=== PATIENT | male | born 1950 | race Caucasian/White ===

== ENCOUNTER 2018-06-15 11:22 | Inpatient (IN) | payer OTHER ==
[~2018-06-15] VITALS: Ht 180.3 cm; Wt 119.5 kg
[2018-06-15 12:09] LABS: CLARITY,URINE CLEAR (CLEAR); COLOR,URINE YELLOW (YELLOW); LEUKOCYTE ESTERASE ,URINE NEGATIVE (NEGATIVE)
[2018-06-15 12:10] LABS: BILIRUBIN,URINE NEGATIVE (NEGATIVE); KETONES,URINE NEGATIVE (NEGATIVE); NITRITE,URINE NEGATIVE (NEGATIVE); PROTEIN,URINE DIPSTICK NEGATIVE (NEGATIVE); URINE UROBILINOGEN 0.2 mg/dL (0.2 - 1)
--- NOTE | 2018-06-15 12:16 | Diagnostic Imaging Report ---
EXAMINATION: CHEST 2 VIEWS INDICATION: Of breath \S\ORDER PLACED BY MD \S\[id number] \S\1145 \S\Y COMPARISON: None FINDINGS: PA and lateral views TUBES and LINES: None. LUNGS: Lungs are well inflated. Mild bilateral central pulmonary vascular congestion. There is no evidence of pneumonia or pulmonary edema. PLEURA: No pleural effusion or pneumothorax. HEART AND MEDIASTINUM: Prominent cardiac silhouette. Tortuous thoracic aorta with possible ectasia of the ascending thoracic segment. Mild atherosclerotic calcifications of the aortic arch. BONES AND SOFT TISSUES: No acute osseous lesion. Soft tissues are unremarkable. UPPER ABDOMEN: No free air under the diaphragm. IMPRESSION: Prominent cardiac silhouette with associated central pulmonary vascular congestion. Signed by: Dr. Delores Armenta M.D. on 06/15/2018 12:12 PM
[2018-06-15 12:29] LABS: EPITHELIAL CELLS,URINE RARE /LPF
[2018-06-15 12:35] LABS: BASOPHILS % 0.2 % (0.0-1.0); EOSINOPHILS # (AUTO) 0.1 (0.0-0.4); EOSINOPHILS % 1.8 % (0.0-6.0); LYMPHOCYTES # (AUTO) 1.7 (1.0-3.2); MEAN CORPUSCULAR HEMOGLOBIN 22.8 pg (28-32); MEAN CORPUSCULAR HGB CONC 29.1 g/dL (31-35); MEAN CORPUSCULAR VOLUME 78.4 fL (81-99); MONOCYTES # (AUTO) 0.8 (0.2-0.8); MONOCYTES % 11.3 % (4.4-11.3); NEUTROPHILS % 60.4 % (38.7-80.0); PLATELET COUNT 271 x10e3/uL (140-360); RED BLOOD COUNT 2.32 x10e6/uL (4.3-5.7); RED CELL DISTRIBUTION WIDTH 16.7 % (11.7-14.4)
[2018-06-15 12:39] LABS: HEMATOCRIT 18.2 % (38.2-49.6); HEMOGLOBIN 5.3 g/dL (14.0-18.0)
[2018-06-15 12:40] LABS: INR 1.2; PROTHROMBIN TIME 14.3 seconds (11.9-14.5)
[2018-06-15 12:41] LABS: PARTIAL THROMBOPLASTIN TIME 25.4 seconds (23.8-35.5)
[2018-06-15] MEDS ORDERED: SODIUM CHLORIDE 0.9% 250ML 250 ML IV ONE (12:45)
[2018-06-15 12:51] LABS: ALANINE AMINOTRANSFERASE 6 IU/L (0-55); ALBUMIN 3.6 g/dL (3.5-5.0); ALBUMIN/GLOBULIN RATIO 1.2 (0.8-2.0); ALKALINE PHOSPHATASE 68 IU/L (40-150); ANION GAP 11.7 mmol/L (8-16); BLOOD UREA NITROGEN 15 mg/dL (7-26); BUN/CREATININE RATIO 18 (6-25); CALCIUM 8.8 mg/dL (8.4-10.2); CARBON DIOXIDE 23 mmol/L (22-29); CHLORIDE 106 mmol/L (98-107); CREATINE KINASE 33 IU/L (30-200); CREATININE, SERUM 0.83 mg/dL (0.72-1.25); EST GLOMERULAR FILTRATION RATE > 60 ML/MIN (60-); GLUCOSE 104 mg/dL (74-118); POTASSIUM 3.7 mmol/L (3.5-5.1); SODIUM 137 mmol/L (136-145)
[2018-06-15] MEDS: SODIUM CHLORIDE 0.9% 1000ML 1,000 ML IV SCH ×2 (12:59→22:59)
[2018-06-15] MEDS ORDERED: ONDANSETRON HCL INJ 2 MG/ML VIAL IV PRN (13:00)
[2018-06-15 14:02] LABS: % IRON SATURATION 4 % (15-50); IRON 18 ug/dL (65-175); TOTAL IRON BINDING CAPACITY 456 ug/dL (261-478); TRANSFERRIN 326 mg/dL (174-364)
[2018-06-15] MEDS ORDERED: LIDOCAINE HCL 2% LOCAL INJ 5 ML SDV VIAL INJ ONE (15:42)
[2018-06-15] MEDS ORDERED: PROPOFOL IV EMULSION 10 MG/ML 20 ML VIAL ONE (15:42)
[2018-06-15] MEDS ORDERED: SODIUM CHLORIDE 0.9% 250ML 250 ML ONE (17:10)
[2018-06-15 17:20] VITALS: BP 151/64
[2018-06-15 17:45] VITALS: BP 151/64
[2018-06-15 17:52] VITALS: BP 151/64
[2018-06-15] MEDS ORDERED: ATORVASTATIN CA10 MG PO (18:15)
[2018-06-15] MEDS ORDERED: AMLODIPINE BESY10 MG PO (18:15)
[2018-06-15] MEDS ORDERED: TAMSULOSIN HCL0.4 MG PO (18:15)
[2018-06-15] MEDS ORDERED: ASPIR 8181 MG PO (18:15)
[2018-06-15 20:00] VITALS: BP 143/66
[2018-06-15 20:25] VITALS: BP 143/66
--- NOTE | 2018-06-15 22:00 | Consultation ---
DATE OF CONSULTATION: June 15, 2018 GI CONSULT NOTE REASON FOR CONSULT: Iron-deficiency anemia with Hemoccult-positive stool. HISTORY OF PRESENTING ILLNESS: A 68-year-old very pleasant , who gets most of his medical services in [facility]. Patient has been experiencing extreme lethargy, weakness, fatigue, and shortness of breath on minimal exertion. His also felt that he is grossly very pale. He wanted to show to his primary care doctor in [place], but somehow he did not get appointment. He decided to come to the emergency room. Here, blood work revealed hemoglobin of 5.3, hematocrit 18.2, MCV 78.4. Iron profile showed serum iron low 18, iron saturation also is also low and TIBC is 456, this is upper limit of the normal. On further questioning, patient stated that he has been seeing stool dark color for a few weeks. However, he tried to ignore it because he thought that when he was taking iron at that time also he noticed stool was dark color. He used to take iron 3 years ago because he was told that he is deficient in iron. He does not remember he was ever anemic like this in his life before. He has had a screening colonoscopy 2 years ago in [place], 2 polyps removed. Repeat colonoscopy was recommended in 3 years, which is due next year. Never had any upper endoscopy. He seldom takes any NSAIDs. Takes Aleve once in a while, probably one or twice in a month. No prior history of peptic ulcer disease. Never had any upper endoscopy. Denies any abdominal pain. Regular bowel movement. REVIEW OF SYSTEMS: Twelve-point system reviewed. Symptomatology is limited as per as per HPI. PAST MEDICAL HISTORY: Hypertension, hyperlipidemia. PAST SURGICAL HISTORY: Hernia repair. SOCIAL HISTORY: . Lives with his . No smoking alcohol or any illicit drug use. FAMILY HISTORY: Noncontributory negative for any GI or TOY MECHANIC malignancies. ALLERGIES: NO KNOWN DRUG ALLERGIES. HOME MEDICATIONS: Amlodipine, aspirin, atorvastatin, and tamsulosin. INPATIENT MEDICATION: Reviewed as per MAR. PHYSICAL EXAMINATION VITALS: Temperature 97.1, pulse 80, respiration 20, blood pressure 143/66, oxygen saturation 98% on room air. GENERAL: Not in any acute distress, gross pallor. HEENT: Oral mucosa is moist. Anicteric sclerae. CVS: S1, S2 regular with a 3/6 flow murmur at the apex. LUNGS: Bilaterally grossly clear. ABDOMEN: Obese, soft, nondistended nontender. No palpable mass or hernia. EXTREMITIES: 1+ bilateral pitting leg edema. LAB: Sodium 137, potassium 3.7, chloride 106, bicarb 23, BUN 15, creatinine 0.83, glucose 104. Serum iron 18, TIBC 456, iron saturation 4, and transferrin 326. Liver enzymes normal. WBC 6.65, hemoglobin 5.3, hematocrit 18.2, MCV 78.4, platelet count 271,000. Stool occult blood positive. Urinalysis negative. Chest x-ray, prominent cardiac silhouette with associated central pulmonary vascular congestion. IMPRESSION: Iron-deficiency anemia with a positive stool occult blood. PLAN 1. Transfuse packed red blood cell to keep hemoglobin at least above 7. 2. Upper endoscopy tomorrow. 3. Further recommendation based upon endoscopy findings. I thank, Dr. Crowell, for allowing me to participate in the care of this patient. MARVA MCKEON MD Job#: [id number] CQ
[2018-06-15] MEDS ORDERED: FUROSEMIDE INJ 10 MG/ML 4 ML VIAL IV ONE (23:45)
[2018-06-16] VITALS (7 sets, daily range): BP systolic 122–155; BP diastolic 56–68
[2018-06-16 04:56] LABS: BASOPHILS % 0.2 % (0.0-1.0); EOSINOPHILS # (AUTO) 0.2 (0.0-0.4); EOSINOPHILS % 2.3 % (0.0-6.0); HEMATOCRIT 21.1 % (38.2-49.6); LYMPHOCYTES # (AUTO) 2.1 (1.0-3.2); LYMPHOCYTES % 22.4 % (18.0-39.1); MEAN CORPUSCULAR HEMOGLOBIN 24.1 pg (28-32); MEAN CORPUSCULAR HGB CONC 30.8 g/dL (31-35); MEAN CORPUSCULAR VOLUME 78.1 fL (81-99); MONOCYTES # (AUTO) 0.9 (0.2-0.8); MONOCYTES % 9.4 % (4.4-11.3); NEUTROPHILS % 65.3 % (38.7-80.0); PLATELET COUNT 271 x10e3/uL (140-360); RED CELL DISTRIBUTION WIDTH 16.4 % (11.7-14.4)
[2018-06-16 05:16] LABS: ANION GAP 13.8 mmol/L (8-16); BLOOD UREA NITROGEN 14 mg/dL (7-26); BUN/CREATININE RATIO 18 (6-25); CALCIUM 8.9 mg/dL (8.4-10.2); CARBON DIOXIDE 24 mmol/L (22-29); CHLORIDE 106 mmol/L (98-107); CREATININE, SERUM 0.78 mg/dL (0.72-1.25); EST GLOMERULAR FILTRATION RATE > 60 ML/MIN (60-); GLUCOSE 102 mg/dL (74-118); POTASSIUM 3.8 mmol/L (3.5-5.1); SODIUM 140 mmol/L (136-145)
[2018-06-16 05:56] LABS: HEMOGLOBIN 6.5 g/dL (14.0-18.0)
[2018-06-16] MEDS ORDERED: SODIUM CHLORIDE 0.9% 250ML 250 ML IV ONE (06:45)
[2018-06-16] MEDS ORDERED: FUROSEMIDE INJ 10 MG/ML 2 ML VIAL IV PRN (06:45)
[2018-06-16] MEDS ORDERED: VITAMIN B-121000 MCG PO (07:59)
[2018-06-16] MEDS ORDERED: SODIUM CHLORIDE 0.9% 250ML 250 ML ONE (09:24)
[2018-06-16] MEDS ORDERED: PANTOPRAZOLE 40 MG 10ML VIAL IV SCH (09:45)
--- NOTE | 2018-06-16 10:28 | History and Physical ---
CHIEF COMPLAINT: Increasing shortness of breath and severe anemia and melena. Patient is a 68-year-old male smoker for many years. The patient had a colonoscopy approximately 2 years ago at the [place]. Had some polyps that was removed. Patient complained of melena and came in with hemoglobin and hematocrit of 5.3 and 18.3. Patient is status post 2 units of blood transfusion. His hemoglobin went up to 6.5. Patient pending for further evaluation with endoscopy. PAST MEDICAL HISTORY: Stable COPD, smoker, colon polyps, osteoarthritis, dyslipidemia, hypertension, enlarged prostate. PAST SURGICAL HISTORY: Abdominal hernia repair. SOCIAL HISTORY: The patient is a smoker and moderate drinker. He lives with his spouse. ALLERGIES: NO KNOWN ALLERGIES. HOME MEDICATIONS: Norvasc, aspirin, Lipitor, vitamin B12, and Flomax. PHYSICAL EXAMINATION VITALS: Temperature is 97, blood pressure 130/60, pulse rate 79, respirations 18. GENERAL: The patient is not in acute distress. He is awake. HEENT: Normocephalic, atraumatic and anicteric. NECK: Supple grossly. PULMONARY: Diminished breath sounds. CARDIOVASCULAR: S1 and S2. Regular rate and rhythm. ABDOMEN: Soft and unremarkable. EXTREMITIES: No cyanosis or edema. NEUROLOGIC: No focal deficit. LABORATORY: Sodium is 140, potassium 3.8, chloride 106, bicarb 24, BUN 14, creatinine 0.8, glucose 102. WBC 9.2, hemoglobin was 5.3 on admission, hematocrit 18.2, and platelets 271,000. IMAGING: Chest x-ray otherwise unremarkable. CT scan of the abdomen and pelvis still pending. IMPRESSION 1. Chronic anemia, but symptomatic. 2. Melena, possible upper gastrointestinal bleed. 3. Recent colonoscopy 2 years ago with polyps. PLAN: Endoscopy. Blood transfusion. Monitor the patient closely. Will follow up on the endoscopy workup. Will check the patient's CT scan of the abdomen and pelvis as well. Job#: [id number] SEBASTIAN
[2018-06-16] MEDS: ALBUTEROL/IPRATROPIUM 3 ML NEB NEB PRN (10:55)
[2018-06-16 12:37] LABS: HEMATOCRIT 24.4 % (38.2-49.6); HEMOGLOBIN 7.5 g/dL (14.0-18.0)
[2018-06-16] MEDS ORDERED: MIDAZOLAM HCL 2 MG/2 ML VIAL ONE (13:25)
--- NOTE | 2018-06-16 16:45 | Diagnostic Imaging Report ---
EXAM: CT Abdomen and Pelvis WITH contrast INDICATION: \S\gi bleed \[id number] \S\[id number] COMPARISON: Chest radiograph 06/15/2018 TECHNIQUE: Abdomen and pelvis were scanned utilizing a multidetector helical scanner from the lung base to the pubic symphysis after administration of IV contrast. Coronal and sagittal reformations were obtained. Routine protocol was performed. Scan was performed when during portal venous phase. IV CONTRAST: 100 mL of Isovue-370 ORAL CONTRAST: Water RADIATION DOSE: Total DLP: 879.3 mGy*cm Estimated effective dose: (DLP x 0.015 x size factor) mSv COMPLICATIONS: None FINDINGS: LINES and TUBES: None. LOWER THORAX: Small low-attenuation right pleural effusion. Subsegmental atelectasis in both lung bases. Biatrial enlargement. Coronary artery calcifications. The visualized distal esophagus is decompressed. HEPATOBILIARY: No focal hepatic lesions. No biliary ductal dilation. GALLBLADDER: No radio-opaque stones or sludge. No wall thickening. SPLEEN: No splenomegaly. Multiple calcified splenic granulomas. PANCREAS: No focal masses or ductal dilatation. ADRENALS: No adrenal nodules KIDNEYS/URETERS: Kidneys enhance symmetrically. No hydronephrosis. No cystic or solid mass lesions. No stones. GI TRACT: The stomach is decompressed. No surrounding fluid collections, fat stranding, or free air. Focal hyperdense wall thickening within the proximal sigmoid colon in the left lower quadrant on series 2, image 59 with associated scarring diverticulosis and mild surrounding fat stranding is suggestive of acute diverticulitis and the source of this patient GI bleed. Otherwise, no abnormal distention, wall thickening, or bowel obstruction. Appendix is normal. PELVIC ORGANS/BLADDER: Unremarkable. LYMPH NODES: No lymphadenopathy. VESSELS: Mild atherosclerotic calcifications of the abdominal aorta and pelvic arteries without aneurysm. Focal calcification in the interlobar left renal vein. PERITONEUM / RETROPERITONEUM: No free air or fluid. BONES: Unremarkable. SOFT TISSUES: Unremarkable. IMPRESSION: Focal diverticulitis of the proximal sigmoid colon in the left lower quadrant with hyperdense wall thickening likely the source of this patient's GI bleed. No perforation, free fluid, or abscess. Recommend follow-up CT abdomen and pelvis in 6-8 weeks to demonstrates resolution. Signed by: Dr. Delores Armenta M.D. on 06/16/2018 4:42 PM
[2018-06-16] MEDS ORDERED: SODIUM CHLORIDE 0.9% 50ML 50 ML ONE (19:36)
[2018-06-16] MEDS ORDERED: IOPAMIDOL 370 MG/ML 200 ML INFUS..BTL INJ ONE (19:36)
[2018-06-17] VITALS (7 sets, daily range): BP systolic 122–139; BP diastolic 57–63
[2018-06-17 05:17] LABS: BASOPHILS % 0.3 % (0.0-1.0); EOSINOPHILS # (AUTO) 0.2 (0.0-0.4); EOSINOPHILS % 2.3 % (0.0-6.0); HEMATOCRIT 24.2 % (38.2-49.6); HEMOGLOBIN 7.5 g/dL (14.0-18.0); LYMPHOCYTES # (AUTO) 1.9 (1.0-3.2); LYMPHOCYTES % 20.6 % (18.0-39.1); MEAN CORPUSCULAR HEMOGLOBIN 24.7 pg (28-32); MEAN CORPUSCULAR VOLUME 79.6 fL (81-99); MONOCYTES # (AUTO) 0.8 (0.2-0.8); MONOCYTES % 9.3 % (4.4-11.3); NEUTROPHILS # (AUTO) 6.1 (2.1-6.9); NEUTROPHILS % 67.4 % (38.7-80.0); PLATELET COUNT 271 x10e3/uL (140-360); RED BLOOD COUNT 3.04 x10e6/uL (4.3-5.7); RED CELL DISTRIBUTION WIDTH 17.2 % (11.7-14.4)
[2018-06-17 05:40] LABS: ANION GAP 12.7 mmol/L (8-16); BLOOD UREA NITROGEN 16 mg/dL (7-26); BUN/CREATININE RATIO 21 (6-25); CALCIUM 8.9 mg/dL (8.4-10.2); CARBON DIOXIDE 22 mmol/L (22-29); CHLORIDE 108 mmol/L (98-107); CREATININE, SERUM 0.78 mg/dL (0.72-1.25); EST GLOMERULAR FILTRATION RATE > 60 ML/MIN (60-); GLUCOSE 102 mg/dL (74-118); POTASSIUM 3.7 mmol/L (3.5-5.1); SODIUM 139 mmol/L (136-145)
[2018-06-17 06:01] LABS: PHOSPHORUS 3.8 MG/DL (2.3-4.7)
[2018-06-17 06:17] LABS: FOLATE 9.5 ng/mL (7.0-15.4)
[2018-06-17] MEDS ORDERED: PANTOPRAZOLE SOD 40 MG TABEC PO SCH (07:30)
[2018-06-17] MEDS: ALBUTEROL/IPRATROPIUM 3 ML NEB NEB PRN ×2 (09:25→19:00)
--- NOTE | 2018-06-17 09:26 | Cardiology Report ---
DATE OF STUDY: ECHOCARDIOGRAM ATTENDING PHYSICIAN: Dr. Lorenzo Crowell. M-MODE: Normal chamber sizes. Left ventricular hypertrophy. Normal contractility. Aortic sclerosis. Sclerosis of the mitral valve annulus. Normal tricuspid valve. No pericardial effusion. SECTOR SCAN: Mildly dilated left atrium. Left ventricular hypertrophy. Normal contractility. Ejection fraction is estimated at 55%. Aortic valve is sclerotic. Mitral annulus is sclerotic. Normal tricuspid valve. No pericardial effusion. CAROTID DOPPLER STUDY WITH COLOR: Aortic velocity is 2.5 m/s. Mitral valve area is calculated 3.3 cm2. There is trace tricuspid regurgitation and trace mitral regurgitation. Pulmonary artery systolic pressure estimated at 23 mmHg. CONCLUSIONS 1. Possible mild aortic stenosis with aortic velocity of 2.5 m/s. 2. Left ventricular hypertrophy with ejection fraction of approximately 55%. 3. Trace mitral regurgitation with sclerosis of the mitral valve annulus and mildly enlarged left atrium. 4. Trace tricuspid regurgitation without significant pulmonary hypertension. Pulmonary artery systolic pressure estimated at 23 mmHg. Job#: [id number] REJI cc:Dr. Lorenzo Crowell
[2018-06-17] MEDS ORDERED: ACETAMINOPHEN 325 MG TAB PO SCH (11:00)
[2018-06-17] MEDS: PANTOPRAZOLE 40 MG 10ML VIAL IV SCH (11:04)
[2018-06-17] MEDS: IRON SUCROSE 100 MG in SODIUM CHLORIDE 0.9% 100 ML 100 ML IV SCH (11:04)
[2018-06-18] VITALS: BP 144/65
[2018-06-18 05:43] LABS: BASOPHILS % 0.5 % (0.0-1.0); EOSINOPHILS # (AUTO) 0.3 (0.0-0.4); EOSINOPHILS % 2.9 % (0.0-6.0); HEMATOCRIT 24.2 % (38.2-49.6); HEMOGLOBIN 7.4 g/dL (14.0-18.0); LYMPHOCYTES # (AUTO) 1.7 (1.0-3.2); LYMPHOCYTES % 19.3 % (18.0-39.1); MEAN CORPUSCULAR HEMOGLOBIN 24.7 pg (28-32); MEAN CORPUSCULAR HGB CONC 30.6 g/dL (31-35); MEAN CORPUSCULAR VOLUME 80.9 fL (81-99); MONOCYTES # (AUTO) 0.8 (0.2-0.8); NEUTROPHILS % 68.1 % (38.7-80.0); PLATELET COUNT 274 x10e3/uL (140-360); RED BLOOD COUNT 2.99 x10e6/uL (4.3-5.7); RED CELL DISTRIBUTION WIDTH 17.5 % (11.7-14.4)
[2018-06-18 06:00] VITALS: BP 124/58
[2018-06-18 08:00] VITALS: BP 124/63
[2018-06-18] MEDS: PANTOPRAZOLE 40 MG 10ML VIAL IV SCH (09:00)
[2018-06-18] MEDS ORDERED: CYANOCOBALAMIN INJ 1,000 MCG/ML VIAL IM ONE (10:30)
[2018-06-18] MEDS: IRON SUCROSE 100 MG in SODIUM CHLORIDE 0.9% 100 ML 100 ML IV SCH (11:26)
[2018-06-18] MEDS: ACETAMINOPHEN 325 MG TAB PO SCH (11:26)
[2018-06-18 12:00] VITALS: BP 138/63
[2018-06-18 16:00] VITALS: BP 139/69
[2018-06-18 20:00] VITALS: BP 142/64
[2018-06-19] VITALS: BP 134/63
[2018-06-19 02:44] VITALS: BP 134/63
[2018-06-19 04:00] VITALS: BP 138/63
[2018-06-19 04:45] LABS: BASOPHILS % 0.5 % (0.0-1.0); EOSINOPHILS # (AUTO) 0.4 (0.0-0.4); EOSINOPHILS % 4.1 % (0.0-6.0); HEMOGLOBIN 7.7 g/dL (14.0-18.0); LYMPHOCYTES # (AUTO) 1.8 (1.0-3.2); LYMPHOCYTES % 20.9 % (18.0-39.1); MEAN CORPUSCULAR HEMOGLOBIN 25.3 pg (28-32); MEAN CORPUSCULAR HGB CONC 30.8 g/dL (31-35); MEAN CORPUSCULAR VOLUME 82.2 fL (81-99); MONOCYTES # (AUTO) 0.6 (0.2-0.8); MONOCYTES % 7.2 % (4.4-11.3); NEUTROPHILS # (AUTO) 5.7 (2.1-6.9); NEUTROPHILS % 67.1 % (38.7-80.0); PLATELET COUNT 290 x10e3/uL (140-360); RED BLOOD COUNT 3.04 x10e6/uL (4.3-5.7); RED CELL DISTRIBUTION WIDTH 18.5 % (11.7-14.4)
[2018-06-19] MEDS: CYANOCOBALAMIN INJ 1,000 MCG/ML VIAL IM SCH ×2 (06:06→09:35)
[2018-06-19 08:00] VITALS: BP 138/63
[2018-06-19] MEDS: PANTOPRAZOLE 40 MG 10ML VIAL IV SCH (09:35)
[2018-06-19] MEDS: IRON SUCROSE 100 MG in SODIUM CHLORIDE 0.9% 100 ML 100 ML IV SCH (09:35)
[2018-06-19] MEDS: ACETAMINOPHEN 325 MG TAB PO SCH (09:35)
--- NOTE | 2018-06-19 09:54 | Discharge Summary ---
PCP: Dr. Tommy Booker GAUGE MAKER: Dr. Estevan Robertson, GI. FINAL DIAGNOSES 1. Symptomatic anemia secondary to slow arteriovenous malformation angiectasias bleed from the upper esophagogastroduodenoscopy diagnosed as Schatzki's ring, hiatal hernia, gastritis, and duodenal angiectasias. 2. Status post iron infusion. 3. Status post multiple blood transfusions. SUMMARY: Patient is a 68-year-old male basically came in with very low hemoglobin and hematocrit. The patient with symptomatic anemia. His hemoglobin and hematocrit on admission was 5.3 and 18.2. Subsequently, he received 2 units of blood transfusion. His hemoglobin and hematocrit now are 7.7 and 25 and is going up slowly. He does have iron deficiency anemia as indicated by the EGD done by Dr. Robertson. Patient is stable. He is doing much better. He received multiple doses of iron infusion. He is stable. He will go home with iron tablets, and continue to monitor outpatient. His echocardiogram showed ejection fraction of 55% to 60%. Chest x-ray otherwise unremarkable. The patient is stable and discharged home today. Follow up with Dr. Robertson for repeated EGD in the near future. The patient is stable. Job#: [id number] SEBASTIAN
[2018-06-19] MEDS ORDERED: HEMATINIC-VITA1 EACH (10:51)
[2018-06-19] MEDS ORDERED: COLACE100 MG PO (10:52)
[2018-06-19 10:54] VITALS: BP 144/66
== END 2018-06-19 10:57 | disposition home or self-care (01) | DRG 378 ==
LOC: ER 11:22 → ERHOLD 13:20 → MED/SURG2 17:06
PROVIDERS: ADMIT Internal Medicine; ATTEND Internal Medicine
PROC: 30233N1 Transfusion of Nonautologous Red Blood Cells into Peripheral Vein, Percutaneous Approach (ICD-10-PCS; 2018-06-15)
PROC: 0W3P8ZZ Control Bleeding in Gastrointestinal Tract, Via Natural or Artificial Opening Endoscopic (ICD-10-PCS; 2018-06-16)
PROC: 0DB68ZX Excision of Stomach, Via Natural or Artificial Opening Endoscopic, Diagnostic (ICD-10-PCS; principal; 2018-06-16 07:00)
DX: K55.21 Angiodysplasia of colon with hemorrhage (principal); D62 Acute posthemorrhagic anemia; K29.70 Gastritis, unspecified, without bleeding; K44.9 Diaphragmatic hernia without obstruction or gangrene; F17.210 Nicotine dependence, cigarettes, uncomplicated; Z86.010 Personal history of colon polyps; E78.5 Hyperlipidemia, unspecified; I10 Essential (primary) hypertension; N40.0 Benign prostatic hyperplasia without lower urinary tract symptoms; J44.9 Chronic obstructive pulmonary disease, unspecified
CPT/HCPCS: 36415; 36430; 43239; 71046; 74177; 80048; 80053; 81001; 82270; 82550; 82553; 82607; 82746; 83540; 83735; 83880; 84100; 84466; 84484; 85014; 85018; 85025; 85610; 85730; 86850; 86900; 86920; 88305; 88312; 93005; 93306; 94640; 99284; J1756; J1940; J2001; J2250; J2405; J3420; J7030; J7050; P9016; Q9967

== ENCOUNTER 2021-03-13 11:17 | Inpatient (IN) | payer MEDICARE, OTHER ==
[~2021-03-13] VITALS: Ht 180.3 cm; Wt 106.6 kg
[~2021-03-13 11:17] MED LIST: AMLODIPINE BESY10 MG PO; ASPIR 8181 MG PO; ATORVASTATIN CA10 MG PO; COLACE100 MG PO; HEMATINIC-VITA1 EACH; TAMSULOSIN HCL0.4 MG PO; VITAMIN B-121000 MCG PO
[2021-03-13 12:09] LABS: BASOPHILS % 0.6 % (0.0-1.0); EOSINOPHILS # (AUTO) 0.2 (0.0-0.4); EOSINOPHILS % 2.4 % (0.0-6.0); HEMATOCRIT 24.8 % (38.2-49.6); HEMOGLOBIN 7.7 g/dL (14.0-18.0); LYMPHOCYTES # (AUTO) 1.9 (1.0-3.2); LYMPHOCYTES % 27.1 % (18.0-39.1); MEAN CORPUSCULAR HEMOGLOBIN 26.5 pg (28-32); MEAN CORPUSCULAR VOLUME 85.2 fL (81-99); MONOCYTES # (AUTO) 0.7 (0.2-0.8); MONOCYTES % 10.3 % (4.4-11.3); NEUTROPHILS # (AUTO) 4.2 (2.1-6.9); NEUTROPHILS % 59.2 % (38.7-80.0); PLATELET COUNT 258 x10e3/uL (140-360); RED BLOOD COUNT 2.91 x10e6/uL (4.3-5.7); RED CELL DISTRIBUTION WIDTH 15.8 % (11.7-14.4)
[2021-03-13] MEDS ORDERED: ALBUTEROL/IPRATROPIUM 3 ML NEB NEB ONE (12:15)
[2021-03-13 12:27] LABS: ALANINE AMINOTRANSFERASE 7 IU/L (0-55); ALBUMIN 3.9 g/dL (3.5-5.0); ALBUMIN/GLOBULIN RATIO 1.3 (0.8-2.0); ALKALINE PHOSPHATASE 74 IU/L (40-150); ANION GAP 12.5 mmol/L (8-16); BLOOD UREA NITROGEN 18 mg/dL (7-26); BUN/CREATININE RATIO 20 (6-25); CALCIUM 8.4 mg/dL (8.4-10.2); CARBON DIOXIDE 23 mmol/L (22-29); CHLORIDE 109 mmol/L (98-107); CREATINE KINASE 75 IU/L (30-200); CREATININE, SERUM 0.92 mg/dL (0.72-1.25); EST GLOMERULAR FILTRATION RATE > 60 ML/MIN (60-); GLUCOSE 105 mg/dL (74-118); POTASSIUM 3.5 mmol/L (3.5-5.1); SODIUM 141 mmol/L (136-145)
[2021-03-13] MEDS ORDERED: OCTREOTIDE ACETATE 0.05 MG/ML AMP IV STA (13:35)
[2021-03-13] MEDS ORDERED: SODIUM CHLORIDE 0.9% 250ML 250 ML IV ONE (14:00)
[2021-03-13] MEDS ORDERED: FUROSEMIDE INJ 10 MG/ML 2 ML VIAL IV PRN (14:00)
[2021-03-13] MEDS ORDERED: PANTOPRAZOLE 40 MG 10ML VIAL IV ONE (14:00)
[2021-03-13] MEDS ORDERED: ALBUTEROL/IPRATROPIUM 3 ML NEB NEB PRN (14:15)
[2021-03-13] MEDS: SODIUM CHLORIDE 0.9% 1000ML 1,000 ML IV SCH (14:39)
[2021-03-13] MEDS: OCTREOTIDE ACETATE 500 MCG in SODIUM CHLORIDE 0.9% 250ML 250 ML IV SCH (15:00)
[2021-03-13 15:46] LABS: INR 1.03; PROTHROMBIN TIME 14.1 seconds (11.9-14.5)
[2021-03-13 15:47] LABS: PARTIAL THROMBOPLASTIN TIME 25.8 seconds (23.8-35.5)
[2021-03-13 15:50] VITALS: BP 154/61
[2021-03-13 15:58] VITALS: BP 154/61
[2021-03-13 20:00] VITALS: BP 125/63
[2021-03-13] MEDS: PANTOPRAZOLE 40 MG 10ML VIAL IV SCH (20:59)
[2021-03-13 21:00] VITALS: BP 125/63
[2021-03-13] MEDS ORDERED: SODIUM CHLORIDE 0.9% 50ML 50 ML ONE (23:44)
[2021-03-14] VITALS (8 sets, daily range): BP systolic 121–139; BP diastolic 52–78
[2021-03-14] MEDS: OCTREOTIDE ACETATE 500 MCG in SODIUM CHLORIDE 0.9% 250ML 250 ML IV SCH ×2 (00:30→10:30)
[2021-03-14] MEDS ORDERED: ACETAMINOPHEN 325 MG TAB PO PRN (01:00)
[2021-03-14] MEDS ORDERED: POTASSIUM CHLORIDE 20 MEQ TAB CR PO PRN (01:00)
[2021-03-14] MEDS ORDERED: BENZONATATE 100 MG CAP PO PRN (01:00)
[2021-03-14] MEDS ORDERED: LIDOCAINE 4% PATCH TP PRN (01:00)
[2021-03-14] MEDS ORDERED: ONDANSETRON HCL INJ 2MG/ML 2ML 2 MG/ML VIAL IV PRN (01:00)
[2021-03-14] MEDS ORDERED: HYDRALAZINE HCL 20 MG/ML VIAL IV PRN (01:00)
[2021-03-14] MEDS ORDERED: DEXTROSE 50% SYRINGE 50 ML IV PRN (01:00)
[2021-03-14] MEDS ORDERED: MELATONIN 5 MG TABLET PO PRN (01:00)
[2021-03-14] MEDS ORDERED: DIPHENHYDRAMINE HCL 25 MG CAP PO PRN (01:00)
[2021-03-14] MEDS ORDERED: DOCUSATE SODIUM 100 MG CAP PO PRN (01:00)
[2021-03-14 01:04] LABS: FERRITIN 8.17 ng/mL (21.81-274.66)
[2021-03-14] MEDS ORDERED: CYANOCOBALAMIN INJ 1,000 MCG/ML VIAL IM STA (01:30)
[2021-03-14 06:08] LABS: BASOPHILS % 0.6 % (0.0-1.0); EOSINOPHILS # (AUTO) 0.2 (0.0-0.4); HEMATOCRIT 30.2 % (38.2-49.6); HEMOGLOBIN 9.5 g/dL (14.0-18.0); LYMPHOCYTES # (AUTO) 1.5 (1.0-3.2); LYMPHOCYTES % 22.1 % (18.0-39.1); MEAN CORPUSCULAR HGB CONC 31.5 g/dL (31-35); MEAN CORPUSCULAR VOLUME 85.8 fL (81-99); MONOCYTES # (AUTO) 0.6 (0.2-0.8); MONOCYTES % 9.3 % (4.4-11.3); NEUTROPHILS # (AUTO) 4.5 (2.1-6.9); NEUTROPHILS % 64.7 % (38.7-80.0); PLATELET COUNT 243 x10e3/uL (140-360); RED BLOOD COUNT 3.52 x10e6/uL (4.3-5.7); RED CELL DISTRIBUTION WIDTH 15.6 % (11.7-14.4)
[2021-03-14] MEDS: SODIUM CHLORIDE 0.9% 1000ML 1,000 ML IV SCH (06:21)
[2021-03-14 06:28] LABS: ALANINE AMINOTRANSFERASE 8 IU/L (0-55); ALBUMIN 3.7 g/dL (3.5-5.0); ALBUMIN/GLOBULIN RATIO 1.2 (0.8-2.0); ALKALINE PHOSPHATASE 75 IU/L (40-150); ANION GAP 12.7 mmol/L (8-16); BLOOD UREA NITROGEN 15 mg/dL (7-26); BUN/CREATININE RATIO 17 (6-25); CALCIUM 8.2 mg/dL (8.4-10.2); CARBON DIOXIDE 25 mmol/L (22-29); CHLORIDE 105 mmol/L (98-107); EST GLOMERULAR FILTRATION RATE > 60 ML/MIN (60-); GLUCOSE 123 mg/dL (74-118); POTASSIUM 3.7 mmol/L (3.5-5.1); SODIUM 139 mmol/L (136-145)
[2021-03-14 06:47] LABS: CREATINE KINASE MB 1.9 ng/mL (0-5.0)
[2021-03-14] MEDS: DOCUSATE SODIUM 100 MG CAP PO SCH ×2 (09:00→16:54)
[2021-03-14] MEDS: IRON SUCROSE 100 MG in SODIUM CHLORIDE 0.9% 100 ML 100 ML IV SCH (09:00)
[2021-03-14] MEDS: PANTOPRAZOLE 40 MG 10ML VIAL IV SCH ×2 (09:00→21:05)
[2021-03-14] MEDS: AMLODIPINE BESYLATE 10 MG TAB PO SCH ×2 (09:00→16:30)
[2021-03-14] MEDS: CYANOCOBALAMIN INJ 1,000 MCG/ML VIAL IM SCH (09:00)
[2021-03-14] MEDS ORDERED: SODIUM CHLORIDE 0.9% 250ML 250 ML ONE (10:56)
[2021-03-14 12:03] LABS: BASOPHILS # (AUTO) 0.1 (0.0-0.1); BASOPHILS % 0.6 % (0.0-1.0); EOSINOPHILS # (AUTO) 0.2 (0.0-0.4); EOSINOPHILS % 2.8 % (0.0-6.0); HEMATOCRIT 30.3 % (38.2-49.6); HEMOGLOBIN 9.4 g/dL (14.0-18.0); LYMPHOCYTES # (AUTO) 1.3 (1.0-3.2); LYMPHOCYTES % 16.7 % (18.0-39.1); MEAN CORPUSCULAR HEMOGLOBIN 26.9 pg (28-32); MEAN CORPUSCULAR VOLUME 86.6 fL (81-99); MONOCYTES # (AUTO) 0.7 (0.2-0.8); MONOCYTES % 8.8 % (4.4-11.3); NEUTROPHILS # (AUTO) 5.6 (2.1-6.9); NEUTROPHILS % 70.7 % (38.7-80.0); PLATELET COUNT 241 x10e3/uL (140-360); RED CELL DISTRIBUTION WIDTH 15.7 % (11.7-14.4)
[2021-03-14 12:22] LABS: CREATINE KINASE MB 1.6 ng/mL (0-5.0)
[2021-03-14] MEDS ORDERED: FUROSEMIDE INJ 10 MG/ML 4 ML VIAL IV NR (12:45)
[2021-03-14] MEDS ORDERED: IOPAMIDOL 370 MG/ML 200 ML INFUS..BTL INJ ONE (13:35)
[2021-03-14] MEDS ORDERED: SODIUM CHLORIDE 0.9% 50ML 50 ML ONE (13:35)
[2021-03-14] MEDS: METHYLPREDNISOLONE SOD SUCC 40 MG/ML VIAL 1ML IV SCH ×2 (16:00→21:06)
[2021-03-14 19:53] LABS: BASOPHILS % 0.4 % (0.0-1.0); EOSINOPHILS % 0.4 % (0.0-6.0); HEMOGLOBIN 9.7 g/dL (14.0-18.0); LYMPHOCYTES # (AUTO) 0.5 (1.0-3.2); LYMPHOCYTES % 5.7 % (18.0-39.1); MEAN CORPUSCULAR HEMOGLOBIN 26.8 pg (28-32); MEAN CORPUSCULAR HGB CONC 31.3 g/dL (31-35); MEAN CORPUSCULAR VOLUME 85.6 fL (81-99); MONOCYTES # (AUTO) 0.2 (0.2-0.8); MONOCYTES % 2.2 % (4.4-11.3); NEUTROPHILS # (AUTO) 7.6 (2.1-6.9); NEUTROPHILS % 90.8 % (38.7-80.0); PLATELET COUNT 250 x10e3/uL (140-360); RED BLOOD COUNT 3.62 x10e6/uL (4.3-5.7); RED CELL DISTRIBUTION WIDTH 15.6 % (11.7-14.4)
[2021-03-14] MEDS: ATORVASTATIN 40 MG TAB PO SCH (21:09)
[2021-03-14] MEDS: ZOLPIDEM TARTRATE 5 MG TAB PO PRN (21:09)
[2021-03-15] VITALS (8 sets, daily range): BP systolic 118–133; BP diastolic 53–87
[2021-03-15 05:55] LABS: BASOPHILS % 0.1 % (0.0-1.0); HEMATOCRIT 29.9 % (38.2-49.6); HEMOGLOBIN 9.5 g/dL (14.0-18.0); LYMPHOCYTES # (AUTO) 0.8 (1.0-3.2); LYMPHOCYTES % 10.3 % (18.0-39.1); MEAN CORPUSCULAR HEMOGLOBIN 27.1 pg (28-32); MEAN CORPUSCULAR HGB CONC 31.8 g/dL (31-35); MEAN CORPUSCULAR VOLUME 85.4 fL (81-99); MONOCYTES # (AUTO) 0.2 (0.2-0.8); MONOCYTES % 2.6 % (4.4-11.3); NEUTROPHILS # (AUTO) 6.4 (2.1-6.9); NEUTROPHILS % 86.3 % (38.7-80.0); PLATELET COUNT 240 x10e3/uL (140-360); RED CELL DISTRIBUTION WIDTH 15.8 % (11.7-14.4)
[2021-03-15 06:12] LABS: ANION GAP 13.5 mmol/L (8-16); BLOOD UREA NITROGEN 14 mg/dL (7-26); BUN/CREATININE RATIO 18 (6-25); CALCIUM 8.6 mg/dL (8.4-10.2); CARBON DIOXIDE 23 mmol/L (22-29); CHLORIDE 106 mmol/L (98-107); CREATININE, SERUM 0.77 mg/dL (0.72-1.25); EST GLOMERULAR FILTRATION RATE > 60 ML/MIN (60-); GLUCOSE 133 mg/dL (74-118); POTASSIUM 3.5 mmol/L (3.5-5.1); SODIUM 139 mmol/L (136-145)
[2021-03-15] MEDS: METHYLPREDNISOLONE SOD SUCC 40 MG/ML VIAL 1ML IV SCH (09:00)
[2021-03-15] MEDS: DOCUSATE SODIUM 100 MG CAP PO SCH ×2 (09:00→16:27)
[2021-03-15] MEDS: CYANOCOBALAMIN INJ 1,000 MCG/ML VIAL IM SCH (09:00)
[2021-03-15] MEDS: PANTOPRAZOLE 40 MG 10ML VIAL IV SCH ×2 (09:00→21:37)
[2021-03-15] MEDS: IRON SUCROSE 100 MG in SODIUM CHLORIDE 0.9% 100 ML 100 ML IV SCH (09:00)
[2021-03-15] MEDS: AMLODIPINE BESYLATE 10 MG TAB PO SCH (09:00)
[2021-03-15] MEDS: ATORVASTATIN 40 MG TAB PO SCH (21:37)
[2021-03-15] MEDS: ZOLPIDEM TARTRATE 5 MG TAB PO PRN (21:37)
[2021-03-16] VITALS (8 sets, daily range): BP systolic 117–140; BP diastolic 51–61
[2021-03-16 05:32] LABS: BASOPHILS % 0.2 % (0.0-1.0); EOSINOPHILS # (AUTO) 0.1 (0.0-0.4); EOSINOPHILS % 0.5 % (0.0-6.0); HEMATOCRIT 28.1 % (38.2-49.6); LYMPHOCYTES # (AUTO) 2.3 (1.0-3.2); LYMPHOCYTES % 19.3 % (18.0-39.1); MEAN CORPUSCULAR HEMOGLOBIN 27.4 pg (28-32); MEAN CORPUSCULAR VOLUME 85.4 fL (81-99); MONOCYTES # (AUTO) 0.8 (0.2-0.8); MONOCYTES % 6.9 % (4.4-11.3); NEUTROPHILS # (AUTO) 8.8 (2.1-6.9); NEUTROPHILS % 72.5 % (38.7-80.0); PLATELET COUNT 228 x10e3/uL (140-360); RED BLOOD COUNT 3.29 x10e6/uL (4.3-5.7); RED CELL DISTRIBUTION WIDTH 15.9 % (11.7-14.4)
[2021-03-16] MEDS ORDERED: METHYLPREDNISOLONE SOD SUCC 40 MG/ML VIAL 1ML IV SCH (06:00)
[2021-03-16] MEDS ORDERED: ONDANSETRON HCL 4 MG ORAL DISINTEGRATING TAB PO PRN (08:00)
[2021-03-16] MEDS: DOCUSATE SODIUM 100 MG CAP PO SCH ×3 (09:00→16:32)
[2021-03-16] MEDS ORDERED: PANTOPRAZOLE SOD 40 MG TABEC PO SCH (09:00)
[2021-03-16] MEDS: AMLODIPINE BESYLATE 10 MG TAB PO SCH (09:00)
[2021-03-16] MEDS: PANTOPRAZOLE 40 MG 10ML VIAL IV SCH ×2 (09:27→21:17)
[2021-03-16] MEDS: IRON SUCROSE 100 MG in SODIUM CHLORIDE 0.9% 100 ML 100 ML IV SCH (09:27)
[2021-03-16] MEDS: CYANOCOBALAMIN INJ 1,000 MCG/ML VIAL IM SCH (09:27)
[2021-03-16] MEDS ORDERED: REGADENOSON 0.4 MG/5 ML SYR IV ONE (10:27)
[2021-03-16] MEDS ORDERED: LIDOCAINE HCL 2% LOCAL INJ 5 ML SDV VIAL INJ ONE (12:19)
[2021-03-16] MEDS ORDERED: PROPOFOL IV EMULSION 10 MG/ML 20 ML VIAL ONE (12:19)
[2021-03-16 16:14] LABS: BASOPHILS % 0.2 % (0.0-1.0); HEMATOCRIT 30.4 % (38.2-49.6); HEMOGLOBIN 9.6 g/dL (14.0-18.0); LYMPHOCYTES # (AUTO) 1.4 (1.0-3.2); LYMPHOCYTES % 11.2 % (18.0-39.1); MEAN CORPUSCULAR HEMOGLOBIN 27.5 pg (28-32); MEAN CORPUSCULAR HGB CONC 31.6 g/dL (31-35); MEAN CORPUSCULAR VOLUME 87.1 fL (81-99); MONOCYTES # (AUTO) 0.6 (0.2-0.8); MONOCYTES % 4.5 % (4.4-11.3); NEUTROPHILS # (AUTO) 10.3 (2.1-6.9); NEUTROPHILS % 83.6 % (38.7-80.0); PLATELET COUNT 241 x10e3/uL (140-360); RED BLOOD COUNT 3.49 x10e6/uL (4.3-5.7)
[2021-03-16 19:25] LABS: BASOPHILS % 0.2 % (0.0-1.0); EOSINOPHILS % 0.1 % (0.0-6.0); HEMATOCRIT 30.8 % (38.2-49.6); HEMOGLOBIN 9.6 g/dL (14.0-18.0); LYMPHOCYTES % 17.9 % (18.0-39.1); MEAN CORPUSCULAR HEMOGLOBIN 27.3 pg (28-32); MEAN CORPUSCULAR HGB CONC 31.2 g/dL (31-35); MEAN CORPUSCULAR VOLUME 87.5 fL (81-99); MONOCYTES # (AUTO) 0.7 (0.2-0.8); NEUTROPHILS # (AUTO) 8.5 (2.1-6.9); NEUTROPHILS % 75.3 % (38.7-80.0); PLATELET COUNT 233 x10e3/uL (140-360); RED BLOOD COUNT 3.52 x10e6/uL (4.3-5.7); RED CELL DISTRIBUTION WIDTH 16.1 % (11.7-14.4)
[2021-03-16] MEDS: ZOLPIDEM TARTRATE 5 MG TAB PO PRN (20:40)
[2021-03-16] MEDS: ATORVASTATIN 40 MG TAB PO SCH (21:17)
[2021-03-17 00:57] VITALS: BP 134/57
[2021-03-17 06:12] VITALS: BP 131/50
[2021-03-17 08:13] VITALS: BP 123/44
[2021-03-17] MEDS: PANTOPRAZOLE 40 MG 10ML VIAL IV SCH (08:16)
[2021-03-17] MEDS: IRON SUCROSE 100 MG in SODIUM CHLORIDE 0.9% 100 ML 100 ML IV SCH (08:16)
[2021-03-17] MEDS: CYANOCOBALAMIN INJ 1,000 MCG/ML VIAL IM SCH (08:16)
[2021-03-17] MEDS: DOCUSATE SODIUM 100 MG CAP PO SCH (08:16)
[2021-03-17] MEDS: AMLODIPINE BESYLATE 10 MG TAB PO SCH (08:17)
[2021-03-17 09:55] VITALS: BP 123/44
[2021-03-17] MEDS ORDERED: POTASSIUM CHLORIDE 10MEQ EA PO ONE (10:15)
[2021-03-17 11:28] VITALS: BP 129/56
[2021-03-17] MEDS ORDERED: AUGMENTIN 875-1 EACH PO (14:56)
[2021-03-17] MEDS ORDERED: PANTOPRAZOLE SO40 MG PO (14:56)
== END 2021-03-17 15:39 | disposition home or self-care (01) | DRG 190 ==
LOC: ER 11:32 → ERHOLD 14:20 → MED/SURG 15:23 → MED/SURG2 17:11
PROVIDERS: ADMIT Internal Medicine; ATTEND Internal Medicine
PROC: 30233N1 Transfusion of Nonautologous Red Blood Cells into Peripheral Vein, Percutaneous Approach (ICD-10-PCS; 2021-03-13)
PROC: 0D598ZZ Destruction of Duodenum, Via Natural or Artificial Opening Endoscopic (ICD-10-PCS; 2021-03-16)
PROC: 0DB78ZX Excision of Stomach, Pylorus, Via Natural or Artificial Opening Endoscopic, Diagnostic (ICD-10-PCS; principal; 2021-03-16 15:30)
DX: J43.9 Emphysema, unspecified (principal); K55.21 Angiodysplasia of colon with hemorrhage; I10 Essential (primary) hypertension; D50.9 Iron deficiency anemia, unspecified; E78.5 Hyperlipidemia, unspecified; Z87.891 Personal history of nicotine dependence; M19.90 Unspecified osteoarthritis, unspecified site; D50.0 Iron deficiency anemia secondary to blood loss (chronic); N40.0 Benign prostatic hyperplasia without lower urinary tract symptoms; K29.70 Gastritis, unspecified, without bleeding; K44.9 Diaphragmatic hernia without obstruction or gangrene
CPT/HCPCS: 36415; 43239; 71045; 71260; 78452; 80048; 80053; 82270; 82550; 82553; 82607; 82728; 82746; 83540; 83880; 84466; 84484; 85025; 85045; 85610; 85730; 86850; 86900; 86920; 88305; 88312; 93005; 93017; 93306; 99284; A9502; J1756; J1940; J2001; J2353; J2354; J2920; J3420; J7030; J7050; P9016; Q9967

== ENCOUNTER 2021-06-14 06:55 | Inpatient (IN) | payer MEDICARE ==
[~2021-06-14] VITALS: Ht 180.3 cm; Wt 106.6 kg
[~2021-06-14 06:55] MED LIST changes: +AUGMENTIN 875-1 EACH PO; +PANTOPRAZOLE SO40 MG PO
[2021-06-14 07:33] LABS: BASOPHILS % 0.4 % (0.0-1.0); EOSINOPHILS # (AUTO) 0.2 (0.0-0.4); EOSINOPHILS % 2.8 % (0.0-6.0); HEMATOCRIT 24.3 % (38.2-49.6); HEMOGLOBIN 7.5 g/dL (14.0-18.0); LYMPHOCYTES # (AUTO) 1.2 (1.0-3.2); LYMPHOCYTES % 16.9 % (18.0-39.1); MEAN CORPUSCULAR HEMOGLOBIN 26.4 pg (28-32); MEAN CORPUSCULAR HGB CONC 30.9 g/dL (31-35); MEAN CORPUSCULAR VOLUME 85.6 fL (81-99); MONOCYTES # (AUTO) 0.6 (0.2-0.8); MONOCYTES % 8.4 % (4.4-11.3); NEUTROPHILS # (AUTO) 5.1 (2.1-6.9); NEUTROPHILS % 71.2 % (38.7-80.0); PLATELET COUNT 234 x10e3/uL (140-360); RED BLOOD COUNT 2.84 x10e6/uL (4.3-5.7); RED CELL DISTRIBUTION WIDTH 16.3 % (11.7-14.4)
[2021-06-14 07:52] LABS: INR 1.05; PROTHROMBIN TIME 13.9 seconds (11.9-14.5)
[2021-06-14 07:53] LABS: PARTIAL THROMBOPLASTIN TIME 26.1 seconds (23.8-35.5)
[2021-06-14 08:17] LABS: ALBUMIN 3.7 g/dL (3.5-5.0); ALBUMIN/GLOBULIN RATIO 1.2 (0.8-2.0); ANION GAP 12.3 mmol/L (8-16); CALCIUM 8.5 mg/dL (8.4-10.2); CREATININE, SERUM 0.78 mg/dL (0.72-1.25); POTASSIUM 3.3 mmol/L (3.5-5.1)
[2021-06-14 08:23] LABS: CREATINE KINASE MB 1.1 ng/mL (0-5.0)
[2021-06-14] MEDS ORDERED: SODIUM CHLORIDE 0.9% 1000ML 1,000 ML IV SCH (11:00)
[2021-06-14] MEDS ORDERED: SIMETHICONE80 MG PO (17:12)
[2021-06-14] MEDS ORDERED: FEROSUL325 MG PO (17:21)
[2021-06-14] MEDS ORDERED: OMEPRAZOLE40 MG PO (17:21)
[2021-06-14] MEDS ORDERED: FOLIC ACID0.4 MG PO (17:21)
[2021-06-14] MEDS ORDERED: ATROPINE SULFATE 1 MG/ML VIAL ONE (17:22)
[2021-06-14] MEDS ORDERED: POVIDONE IODINE 0.05% 0.05 % ML PO ONE (17:22)
[2021-06-14] MEDS ORDERED: PROPOFOL IV EMULSION 10 MG/ML 20 ML VIAL ONE (17:22)
[2021-06-14] MEDS ORDERED: PROAIR HFA INH8.5 GM INH (17:30)
[2021-06-14 18:44] LABS: BASOPHILS % 0.4 % (0.0-1.0); EOSINOPHILS # (AUTO) 0.2 (0.0-0.4); EOSINOPHILS % 3.2 % (0.0-6.0); HEMATOCRIT 25.7 % (38.2-49.6); HEMOGLOBIN 7.7 g/dL (14.0-18.0); LYMPHOCYTES # (AUTO) 1.3 (1.0-3.2); LYMPHOCYTES % 17.4 % (18.0-39.1); MEAN CORPUSCULAR VOLUME 86.8 fL (81-99); MONOCYTES # (AUTO) 0.6 (0.2-0.8); MONOCYTES % 8.4 % (4.4-11.3); NEUTROPHILS # (AUTO) 5.3 (2.1-6.9); NEUTROPHILS % 70.3 % (38.7-80.0); PLATELET COUNT 227 x10e3/uL (140-360); RED BLOOD COUNT 2.96 x10e6/uL (4.3-5.7); RED CELL DISTRIBUTION WIDTH 16.2 % (11.7-14.4)
[2021-06-15] VITALS (8 sets, daily range): BP systolic 114–141; BP diastolic 51–63
[2021-06-15 02:01] LABS: FERRITIN 12.87 ng/mL (21.81-274.66)
[2021-06-15 06:51] LABS: BASOPHILS % 0.7 % (0.0-1.0); EOSINOPHILS # (AUTO) 0.3 (0.0-0.4); EOSINOPHILS % 4.5 % (0.0-6.0); HEMATOCRIT 26.1 % (38.2-49.6); LYMPHOCYTES # (AUTO) 1.2 (1.0-3.2); LYMPHOCYTES % 20.5 % (18.0-39.1); MEAN CORPUSCULAR HEMOGLOBIN 25.9 pg (28-32); MEAN CORPUSCULAR HGB CONC 30.7 g/dL (31-35); MEAN CORPUSCULAR VOLUME 84.5 fL (81-99); MONOCYTES # (AUTO) 0.6 (0.2-0.8); MONOCYTES % 10.4 % (4.4-11.3); NEUTROPHILS # (AUTO) 3.6 (2.1-6.9); NEUTROPHILS % 63.7 % (38.7-80.0); PLATELET COUNT 233 x10e3/uL (140-360); RED BLOOD COUNT 3.09 x10e6/uL (4.3-5.7); RED CELL DISTRIBUTION WIDTH 16.2 % (11.7-14.4)
[2021-06-15 07:13] LABS: ALBUMIN 3.4 g/dL (3.5-5.0); ALBUMIN/GLOBULIN RATIO 1.1 (0.8-2.0); ANION GAP 12.3 mmol/L (8-16); CALCIUM 8.6 mg/dL (8.4-10.2); CREATININE, SERUM 0.73 mg/dL (0.72-1.25); POTASSIUM 3.3 mmol/L (3.5-5.1)
[2021-06-15] MEDS ORDERED: NICOTINE 21 MG/EA PATCH TOP PRN (09:45)
[2021-06-15] MEDS ORDERED: ALBUTEROL/IPRATROPIUM 3 ML NEB NEB PRN (09:45)
[2021-06-15] MEDS ORDERED: HEPARIN SOD (PORCINE) 1000 UNIT/ML SDV ONE (10:10)
[2021-06-15 13:25] LABS: BASOPHILS % 0.4 % (0.0-1.0); EOSINOPHILS # (AUTO) 0.3 (0.0-0.4); EOSINOPHILS % 4.9 % (0.0-6.0); HEMATOCRIT 26.4 % (38.2-49.6); LYMPHOCYTES # (AUTO) 1.3 (1.0-3.2); LYMPHOCYTES % 24.8 % (18.0-39.1); MEAN CORPUSCULAR HGB CONC 30.3 g/dL (31-35); MEAN CORPUSCULAR VOLUME 85.7 fL (81-99); MONOCYTES # (AUTO) 0.5 (0.2-0.8); MONOCYTES % 10.2 % (4.4-11.3); NEUTROPHILS # (AUTO) 3.1 (2.1-6.9); NEUTROPHILS % 59.5 % (38.7-80.0); PLATELET COUNT 243 x10e3/uL (140-360); RED BLOOD COUNT 3.08 x10e6/uL (4.3-5.7)
[2021-06-15] MEDS: CYANOCOBALAMIN 1,000 MCG TAB PO SCH (14:28)
[2021-06-15] MEDS: IRON SUCROSE 100 MG in SODIUM CHLORIDE 0.9% 100 ML 100 ML IV SCH (14:28)
[2021-06-15] MEDS: TAMSULOSIN HCL 0.4 MG CAP PO SCH (16:59)
[2021-06-15] MEDS: DOCUSATE SODIUM 100 MG CAP PO SCH (16:59)
[2021-06-15 19:43] LABS: BASOPHILS % 0.7 % (0.0-1.0); EOSINOPHILS # (AUTO) 0.2 (0.0-0.4); EOSINOPHILS % 3.4 % (0.0-6.0); HEMATOCRIT 31.7 % (38.2-49.6); HEMOGLOBIN 8.8 g/dL (14.0-18.0); LYMPHOCYTES # (AUTO) 1.4 (1.0-3.2); LYMPHOCYTES % 23.5 % (18.0-39.1); MEAN CORPUSCULAR HEMOGLOBIN 25.9 pg (28-32); MEAN CORPUSCULAR HGB CONC 27.8 g/dL (31-35); MEAN CORPUSCULAR VOLUME 93.2 fL (81-99); MONOCYTES # (AUTO) 0.5 (0.2-0.8); MONOCYTES % 9.3 % (4.4-11.3); NEUTROPHILS # (AUTO) 3.7 (2.1-6.9); NEUTROPHILS % 62.8 % (38.7-80.0); PLATELET COUNT 160 x10e3/uL (140-360); RED CELL DISTRIBUTION WIDTH 16.4 % (11.7-14.4)
[2021-06-15] MEDS: ATORVASTATIN 40 MG TAB PO SCH (21:19)
[2021-06-16] VITALS (7 sets, daily range): BP systolic 113–135; BP diastolic 48–63
[2021-06-16 08:25] LABS: BASOPHILS % 0.6 % (0.0-1.0); EOSINOPHILS # (AUTO) 0.3 (0.0-0.4); EOSINOPHILS % 5.1 % (0.0-6.0); HEMATOCRIT 25.1 % (38.2-49.6); HEMOGLOBIN 7.9 g/dL (14.0-18.0); LYMPHOCYTES # (AUTO) 1.2 (1.0-3.2); LYMPHOCYTES % 22.2 % (18.0-39.1); MEAN CORPUSCULAR HEMOGLOBIN 26.6 pg (28-32); MEAN CORPUSCULAR HGB CONC 31.5 g/dL (31-35); MEAN CORPUSCULAR VOLUME 84.5 fL (81-99); MONOCYTES # (AUTO) 0.5 (0.2-0.8); MONOCYTES % 9.2 % (4.4-11.3); NEUTROPHILS # (AUTO) 3.3 (2.1-6.9); NEUTROPHILS % 62.5 % (38.7-80.0); PLATELET COUNT 223 x10e3/uL (140-360); RED BLOOD COUNT 2.97 x10e6/uL (4.3-5.7); RED CELL DISTRIBUTION WIDTH 16.3 % (11.7-14.4)
[2021-06-16 08:50] LABS: ANION GAP 11.4 mmol/L (8-16); CALCIUM 8.5 mg/dL (8.4-10.2); CREATININE, SERUM 0.83 mg/dL (0.72-1.25); POTASSIUM 3.4 mmol/L (3.5-5.1)
[2021-06-16] MEDS: DOCUSATE SODIUM 100 MG CAP PO SCH ×2 (08:55→17:15)
[2021-06-16] MEDS: FOLIC ACID 400 MCG PO SCH (08:55)
[2021-06-16] MEDS: AMLODIPINE BESYLATE 10 MG TAB PO SCH (08:56)
[2021-06-16] MEDS: CYANOCOBALAMIN 1,000 MCG TAB PO SCH (08:56)
[2021-06-16] MEDS ORDERED: POTASSIUM CHLORIDE 10MEQ EA PO NR (10:15)
[2021-06-16] MEDS: IRON SUCROSE 100 MG in SODIUM CHLORIDE 0.9% 100 ML 100 ML IV SCH (12:00)
[2021-06-16 15:36] LABS: BASOPHILS % 0.7 % (0.0-1.0); EOSINOPHILS # (AUTO) 0.4 (0.0-0.4); EOSINOPHILS % 6.2 % (0.0-6.0); HEMOGLOBIN 8.4 g/dL (14.0-18.0); LYMPHOCYTES # (AUTO) 1.5 (1.0-3.2); LYMPHOCYTES % 26.9 % (18.0-39.1); MEAN CORPUSCULAR HEMOGLOBIN 26.3 pg (28-32); MEAN CORPUSCULAR HGB CONC 31.1 g/dL (31-35); MEAN CORPUSCULAR VOLUME 84.4 fL (81-99); MONOCYTES # (AUTO) 0.5 (0.2-0.8); MONOCYTES % 8.8 % (4.4-11.3); NEUTROPHILS # (AUTO) 3.2 (2.1-6.9); PLATELET COUNT 251 x10e3/uL (140-360); RED CELL DISTRIBUTION WIDTH 15.9 % (11.7-14.4)
[2021-06-16] MEDS: TAMSULOSIN HCL 0.4 MG CAP PO SCH (17:15)
[2021-06-16 19:26] LABS: BASOPHILS % 0.6 % (0.0-1.0); EOSINOPHILS # (AUTO) 0.3 (0.0-0.4); EOSINOPHILS % 4.2 % (0.0-6.0); HEMATOCRIT 27.2 % (38.2-49.6); HEMOGLOBIN 8.3 g/dL (14.0-18.0); LYMPHOCYTES # (AUTO) 1.2 (1.0-3.2); LYMPHOCYTES % 17.1 % (18.0-39.1); MEAN CORPUSCULAR HEMOGLOBIN 26.2 pg (28-32); MEAN CORPUSCULAR HGB CONC 30.5 g/dL (31-35); MEAN CORPUSCULAR VOLUME 85.8 fL (81-99); MONOCYTES # (AUTO) 0.7 (0.2-0.8); MONOCYTES % 9.9 % (4.4-11.3); NEUTROPHILS # (AUTO) 4.8 (2.1-6.9); NEUTROPHILS % 67.9 % (38.7-80.0); PLATELET COUNT 246 x10e3/uL (140-360); RED BLOOD COUNT 3.17 x10e6/uL (4.3-5.7); RED CELL DISTRIBUTION WIDTH 15.9 % (11.7-14.4)
[2021-06-16] MEDS: ATORVASTATIN 40 MG TAB PO SCH (21:00)
[2021-06-17 05:50] VITALS: BP 125/52
[2021-06-17 06:21] LABS: BASOPHILS % 0.4 % (0.0-1.0); EOSINOPHILS # (AUTO) 0.3 (0.0-0.4); EOSINOPHILS % 5.1 % (0.0-6.0); HEMATOCRIT 26.1 % (38.2-49.6); LYMPHOCYTES # (AUTO) 1.6 (1.0-3.2); LYMPHOCYTES % 23.2 % (18.0-39.1); MEAN CORPUSCULAR HEMOGLOBIN 25.8 pg (28-32); MEAN CORPUSCULAR HGB CONC 30.7 g/dL (31-35); MEAN CORPUSCULAR VOLUME 84.2 fL (81-99); MONOCYTES # (AUTO) 0.7 (0.2-0.8); MONOCYTES % 10.2 % (4.4-11.3); NEUTROPHILS # (AUTO) 4.1 (2.1-6.9); PLATELET COUNT 262 x10e3/uL (140-360)
[2021-06-17 06:52] LABS: ANION GAP 12.4 mmol/L (8-16); CALCIUM 8.5 mg/dL (8.4-10.2); CREATININE, SERUM 0.85 mg/dL (0.72-1.25); POTASSIUM 3.4 mmol/L (3.5-5.1)
[2021-06-17 07:30] VITALS: BP 125/54
[2021-06-17 07:43] VITALS: BP 125/54
[2021-06-17] MEDS ORDERED: ACETAMINOPHEN 325 MG TAB PO ONE (09:00)
[2021-06-17] MEDS: FOLIC ACID 400 MCG PO SCH (09:00)
[2021-06-17] MEDS ORDERED: IRON SUCROSE 200 MG in SODIUM CHLORIDE 0.9% 100 ML 100 ML IV ONE (09:00)
[2021-06-17] MEDS ORDERED: METHYLPREDNISOLONE SOD SUCC 40 MG/ML VIAL 1ML IV ONE (09:00)
[2021-06-17] MEDS: DOCUSATE SODIUM 100 MG CAP PO SCH (09:13)
[2021-06-17] MEDS: CYANOCOBALAMIN 1,000 MCG TAB PO SCH (09:14)
[2021-06-17] MEDS: AMLODIPINE BESYLATE 10 MG TAB PO SCH (09:14)
== END 2021-06-17 11:50 | disposition home or self-care (01) | DRG 378 ==
LOC: ER 07:10 → ERHOLD 10:52 → IMCU 16:43
PROVIDERS: ADMIT Internal Medicine; ATTEND Internal Medicine
PROC: 0D5A8ZZ Destruction of Jejunum, Via Natural or Artificial Opening Endoscopic (ICD-10-PCS; 2021-06-16)
PROC: 0D598ZZ Destruction of Duodenum, Via Natural or Artificial Opening Endoscopic (ICD-10-PCS; principal; 2021-06-16 12:00)
DX: K55.21 Angiodysplasia of colon with hemorrhage (principal); D62 Acute posthemorrhagic anemia; I10 Essential (primary) hypertension; J44.9 Chronic obstructive pulmonary disease, unspecified; E78.5 Hyperlipidemia, unspecified; F17.290 Nicotine dependence, other tobacco product, uncomplicated; K44.9 Diaphragmatic hernia without obstruction or gangrene; Z20.822 Contact with and (suspected) exposure to COVID-19; M19.90 Unspecified osteoarthritis, unspecified site
CPT/HCPCS: 36415; 43255; 71045; 78278; 80048; 80053; 82270; 82550; 82553; 82607; 82728; 82746; 83540; 83880; 84466; 84484; 85025; 85045; 85610; 85730; 86850; 86900; 86920; 93005; 99251; 99284; A9512; J0461; J1644; J1756; J2920; J7030; U0002

== ENCOUNTER 2023-03-11 09:16 | Emergency (ER) | payer MEDICARE, OTHER ==
[~2023-03-11] VITALS: Ht 177.8 cm; Wt 102.1 kg
[~2023-03-11 09:16] MED LIST changes: +FEROSUL325 MG PO; +FOLIC ACID0.4 MG PO; +OMEPRAZOLE40 MG PO; +PROAIR HFA INH8.5 GM INH; +SIMETHICONE80 MG PO
[2023-03-11 09:20] VITALS: O2SAT 99
[2023-03-11] MEDS ORDERED: BACITRACIN ZINC 0.9GM TP ONE ×2 (09:24→10:00)
[2023-03-11] MEDS ORDERED: TETANUS/DIPHTHERIA TOX ADULT 0.5 ML SYR IM ONE (09:30)
[2023-03-11] MEDS ORDERED: AMOX TR-K CLV1 EAC2 PO (10:23)
[2023-03-11] MEDS ORDERED: MUPIROCIN22 GM TOP (10:23)
== END 2023-03-11 10:39 | disposition home or self-care (01) ==
LOC: ER 09:23
DX: S61.432A Puncture wound without foreign body of left hand, initial encounter (principal); S61.431A Puncture wound without foreign body of right hand, initial encounter; W54.0XXA Bitten by dog, initial encounter; Y92.89 Other specified places as the place of occurrence of the external cause; I10 Essential (primary) hypertension; J44.9 Chronic obstructive pulmonary disease, unspecified; E78.5 Hyperlipidemia, unspecified; K21.9 Gastro-esophageal reflux disease without esophagitis
CPT/HCPCS: 90471; 90714; 99284

== ENCOUNTER → 2023-04-01 | Outpatient (CLI) | payer MEDICARE ==
[~2023-04-01] MED LIST changes: +AMOX TR-K CLV1 EAC2 PO; +MUPIROCIN22 GM TOP
== END | disposition home or self-care (01) ==
LOC: DX 09:29
PROVIDERS: ATTEND Internal Medicine
DX: Z00.00 Encounter for general adult medical examination without abnormal findings (principal)
CPT/HCPCS: 77080

== ENCOUNTER 2025-06-16 12:38 | Inpatient (IN) | payer MEDICARE ==
[2025-06-16] VITALS (8 sets, daily range): BP systolic 135–150; BP diastolic 66–83; PULSE 80–93; RESP 18–20; TEMP 97.4–98.3; O2SAT 96–99
[~2025-06-16] VITALS: Ht 180.3 cm; Wt 108.9 kg
[2025-06-16] MEDS: SODIUM CHLORIDE 0.9% 1000ML 1,000 ML IV STA (13:11)
[2025-06-16] MEDS: ACETAMINOPHEN 325 MG TAB PO STA (13:18)
[2025-06-16 13:21] LABS: BASOPHILS % 0.5 % (0.0-1.0); EOSINOPHILS % 4.0 % (0.0-6.0); LYMPHOCYTES % 17.8 % (18.0-39.1); MONOCYTES % 10.9 % (4.4-11.3); NEUTROPHILS % 66.6 % (38.7-80.0); RED CELL DISTRIBUTION WIDTH 12.9 % (11.7-14.4)
[2025-06-16] MEDS ORDERED: SODIUM CHLORIDE 0.9% 100 ML ONE (13:25)
[2025-06-16] MEDS ORDERED: IOPAMIDOL 370 MG/ML 100 ML INFUS..BTL INJ ONE (13:25)
[2025-06-16 13:37] LABS: EST GLOMERULAR FILTRATION RATE 90.0 ML/MIN (>=60)
[2025-06-16 13:43] LABS: CORONAVIRUS COVID-19 AG NEGATIVE (NEGATIVE)
[2025-06-16] MEDS ORDERED: ONDANSETRON HCL INJ 2MG/ML 2ML 2 MG/ML VIAL IV PRN (14:30)
[2025-06-16] MEDS ORDERED: ALBUTEROL 90 MCG/ACT INHALER INH PRN (14:30)
[2025-06-16] MEDS ORDERED: ALBUTEROL/IPRATROPIUM 3 ML NEB NEB PRN (15:00)
[2025-06-16] MEDS: FUROSEMIDE INJ 10 MG/ML 2 ML VIAL IV SCH (22:57)
[2025-06-17] VITALS (10 sets, daily range): BP systolic 123–159; BP diastolic 63–83; PULSE 66–93; RESP 18–20; TEMP 97.4–98.7; O2SAT 94–98
[2025-06-17 07:35] LABS: BASOPHILS % 0.4 % (0.0-1.0); EOSINOPHILS % 2.6 % (0.0-6.0); LYMPHOCYTES % 16.3 % (18.0-39.1); MONOCYTES % 8.5 % (4.4-11.3); NEUTROPHILS % 72.0 % (38.7-80.0); RED CELL DISTRIBUTION WIDTH 12.9 % (11.7-14.4)
[2025-06-17 08:22] LABS: EST GLOMERULAR FILTRATION RATE 89.0 ML/MIN (>=60)
[2025-06-17] MEDS: CYANOCOBALAMIN 1,000 MCG TAB PO SCH (09:57)
[2025-06-17] MEDS: TAMSULOSIN HCL 0.4 MG CAP PO SCH (09:57)
[2025-06-17] MEDS: DOCUSATE SODIUM 100 MG CAP PO SCH (09:57)
[2025-06-17] MEDS: FERROUS SULFATE 325 MG TAB PO SCH (09:57)
[2025-06-17] MEDS: PANTOPRAZOLE SOD 40 MG TABEC PO SCH (09:57)
[2025-06-17] MEDS: AMLODIPINE BESYLATE 10 MG TAB PO SCH (09:58)
[2025-06-17] MEDS: Morphine 4mg INJECTION 4 MG/ML INJ IV PRN (14:28)
[2025-06-17 14:48] LABS: BODY FLUID APPEARANCE CLOUDY; BODY FLUID COLOR RED; BODY FLUID TYPE PLEURAL
[2025-06-17 15:21] LABS: LYMPHOCYTES,BODY FLUID 73 %; MONO/MACROPHG,BODY FLUID 10 %; NEUTROPHILS,BODY FLUID 15 %
[2025-06-17 15:22] LABS: OTHER CELLS,BODY FLUID 2 %; TOTAL CELLS COUNTED (DIFF) 100; WBC,BODY FLUID 2172 cells/uL
[2025-06-17 17:26] LABS: INR 0.98
[2025-06-17] MEDS ORDERED: POTASSIUM CHLORIDE 20 MEQ TAB CR PO STA (17:57)
[2025-06-17] MEDS: POTASSIUM CHLORIDE 20 MEQ TAB CR PO ONE (18:45)
[2025-06-17] MEDS: ATORVASTATIN 40 MG TAB PO SCH (21:18)
[2025-06-18] VITALS (14 sets, daily range): BP systolic 110–153; BP diastolic 46–83; PULSE 66–82; RESP 17–20; TEMP 97.4–98.7; O2SAT 94–99
[2025-06-18] MEDS: SPIRONOLACTONE 25 MG TAB PO SCH (09:59)
[2025-06-18] MEDS: SACUBITRIL/VALSARTAN 24MG/26MG 1 EA TAB PO SCH (17:20)
[2025-06-19] VITALS (7 sets, daily range): BP systolic 125; BP diastolic 53–66; PULSE 66–78; RESP 18–20; TEMP 97.9–98; O2SAT 95–98
[2025-06-19] MEDS: METOPROLOL SUCCINATE 25 MG TAB XL PO SCH (08:16)
[2025-06-27 17:10] LABS: TOTAL PROTEIN,BODY FLUID 4.3 g/dL
== END 2025-06-19 11:15 | disposition home or self-care (01) | DRG 291 ==
LOC: ER 12:46 → ERHOLD 14:19 → MED/SURG3 15:06
PROVIDERS: ADMIT Internal Medicine; ATTEND Internal Medicine
PROC: 0W9B3ZZ Drainage of Left Pleural Cavity, Percutaneous Approach (ICD-10-PCS; principal; 2025-06-17)
DX: I11.0 Hypertensive heart disease with heart failure (principal); I50.23 Acute on chronic systolic (congestive) heart failure; J18.9 Pneumonia, unspecified organism; J90 Pleural effusion, not elsewhere classified; J44.1 Chronic obstructive pulmonary disease with (acute) exacerbation; I42.9 Cardiomyopathy, unspecified; I70.0 Atherosclerosis of aorta; I35.0 Nonrheumatic aortic (valve) stenosis; K21.9 Gastro-esophageal reflux disease without esophagitis; E78.5 Hyperlipidemia, unspecified; M19.90 Unspecified osteoarthritis, unspecified site; D64.9 Anemia, unspecified; J43.9 Emphysema, unspecified; E66.9 Obesity, unspecified; G47.33 Obstructive sleep apnea (adult) (pediatric); N40.1 Benign prostatic hyperplasia with lower urinary tract symptoms; Z87.891 Personal history of nicotine dependence; Z11.52 Encounter for screening for COVID-19; Z79.51 Long term (current) use of inhaled steroids; Z68.33 Body mass index [BMI] 33.0-33.9, adult
CPT/HCPCS: 32555; 36415; 71045; 71260; 74177; 74470; 80053; 82550; 83605; 83615; 83690; 83880; 84157; 84478; 84484; 85025; 85610; 85730; 86850; 86900; 87040; 87070; 87086; 87205; 88112; 88305; 88342; 89051; 93005; 93306; 94799; 99284; J1938; J2270; J2470; J2543; J7030; J7050; Q9967

== ENCOUNTER → 2025-07-03 | Outpatient (REF) | payer MEDICARE | LOC: RAD 12:28 | PROVIDERS: ATTEND Internal Medicine Critical Care Medicine | DX: J90 Pleural effusion, not elsewhere classified (principal) | CPT/HCPCS: 71046 ==